=== PATIENT | female | born 1990 | race American Indian/Alaskan Native ===

== ENCOUNTER 2018-02-12 20:41 | Emergency (ER) | payer SELFPAY ==
[2018-02-12 21:06] VITALS: BP 111/79
[2018-02-12 22:00] LABS: HCG Qualitative,Urine Negative (Negative)
[2018-02-12 22:02] LABS: Bilirubin,Urine NEG (Negative); Blood,Urine NEG (Negative); Color,Urine Yellow (Yellow); Mucus,Urine 2+ /HPF; Protein,Urine <15 mg/dL mg/dL (Negative)
[2018-02-12] MEDS ORDERED: MOTRIN PO ONE (23:24)
--- NOTE | 2018-02-12 23:30 | Emergency Department Report ---
ED Back Pain/Injury HPI - General Chief Complaint: Back Pain/Injury Stated Complaint: BACK PAIN Time Seen by Provider: 02/12/18 23:22 Source: patient Limitations: No Limitations - History of Present Illness Initial Comments: 27-year-old -[place] female presents to the emergency room complaining of back pain. Patient states that she was lifting heavy boxes while she was at work today around 6:30 PM. Patient reports she has no past medical history currently takes no medications on a daily basis has no known drug allergies. MD Complaint: back pain -: This afternoon (629) Similar Symptoms Previously: No Place: work Severity scale (0 -10): 9 Quality: other (tightness and throbbing) Consistency: constant Worsens With: none Context: while lifting Associated Symptoms: denies: difficulty urinating, incontinence, fever/chills, nausea/vomiting Treatments Prior to Arrival: acetaminophen - Related Data Previous Rx's Medication Instructions Recorded Last Taken Type Ibuprofen [Motrin 600 MG tab] 600 mg PO Q8H #30 tablet 02/12/18 Unknown Rx Nitrofurantoin Monohyd/M-Cryst 100 mg PO Q12H #14 capsule 02/12/18 Unknown Rx [Macrobid 100 mg Capsule] Allergies Allergy/AdvReac Type Severity Reaction Status Date / Time No Known Allergies Allergy Unverified 02/12/18 21:06 ED Review of Systems ROS: Stated complaint: BACK PAIN Other details as noted in HPI ED Past Medical Hx - Past Medical History Previous Medical History?: No - Surgical History Past Surgical History?: No - Social History Smoking Status: Never Smoker Substance Use Type: Alcohol - Medications Home Medications: Home Medications Medication Instructions Recorded Confirmed Last Taken Type Ibuprofen [Motrin 600 MG tab] 600 mg PO Q8H #30 tablet 02/12/18 Unknown Rx Nitrofurantoin Monohyd/M-Cryst 100 mg PO Q12H #14 capsule 02/12/18 Unknown Rx [Macrobid 100 mg Capsule] ED Physical Exam - General Limitations: No Limitations General appearance: alert, in no apparent distress - Head Head exam: Present: atraumatic, normocephalic - Eye Eye exam: Present: EOMI - ENT ENT exam: Present: mucous membranes moist - Extremities Exam Extremities exam: Present: normal inspection - Back Exam Back exam: Present: tenderness, CVA tenderness (L) - Neurological Exam Neurological exam: Present: alert, oriented X3 - Psychiatric Psychiatric exam: Present: normal affect, normal mood - Skin Skin exam: Present: warm, dry, intact, normal color. Absent: rash ED Course Vital Signs 02/12/18 21:02 Temperature 99.2 F Pulse Rate 99 H Blood Pressure 111/79 O2 Sat by Pulse 98 Oximetry ED Medical Decision Making - Medical Decision Making Patient has been evaluated by this provider fast track. Labs show the patient has positive esterase with ketones. We'll treat patient for urinary tract infection. We'll give patient ibuprofen for pain management of her back. Patient should follow-up with her primary care provider. Critical care attestation.: If time is entered above; I have spent that time in minutes in the direct care of this critically ill patient, excluding procedure time. ED Disposition Clinical Impression: Back pain Qualifiers: Back pain location: low back pain Chronicity: acute Back pain laterality: left Sciatica presence: without sciatica Qualified Code(s): M54.5 - Low back pain UTI (urinary tract infection) Qualifiers: Urinary tract infection type: acute cystitis Hematuria presence: without hematuria Qualified Code(s): N30.00 - Acute cystitis without hematuria Disposition: DC- TO HOME OR SELFCARE Is pt being admited?: No Does the pt Need Aspirin: No Condition: Stable Instructions: Low Back Strain (ED), Urinary Tract Infection in Women (ED) Additional Instructions: Complete antibiotics as prescribed pain medication as needed symptoms persist follow up with primary care provider. Prescriptions: Ibuprofen [Motrin 600 MG tab] 600 mg PO Q8H #30 tablet Nitrofurantoin Monohyd/M-Cryst [Macrobid 100 mg Capsule] 100 mg PO Q12H #14 capsule Referrals: PRIMARY CARE, [Primary Care Provider] - 3-5 Days
== END 2018-02-12 23:40 | disposition home or self-care (01) ==
LOC: ED 20:41
DX: N30.00 Acute cystitis without hematuria (principal); M54.5 Low back pain
CPT/HCPCS: 81001; 81025; 99283